=== PATIENT | male | born 1970 | race Caucasian/White ===

== ENCOUNTER 2025-02-05 08:25 | Day surgery (SDC) | payer BC ==
[~2025-02-05 08:25] MED LIST: ALPRAZolam 0.25 MG TAB PO PRN; ALPRAZolam 0.5 MG TAB PO PRN; NITROGLYCERIN SL TABS 0.4 MG TAB SUBLINGUAL PRN
[2025-02-05 08:43] VITALS: TEMP 98
[2025-02-05] MEDS: ASPIRIN 325 MG TAB PO ONE (08:48)
[2025-02-05] MEDS: SODIUM CHLORIDE 0.9% 1,000 ML in EMPTY BAG 1 BAG IV SCH (08:48)
[2025-02-05] MEDS: IV FLUID CONTINUATION 1,000 ML IV ONE (08:49)
[2025-02-05 09:06] LABS: Basophils # (A) 0.03 10*3/uL (0.00-0.10); Basophils % (A) 0.8 %; Eosinophils # (A) 0.16 10*3/uL (0.04-0.35); Eosinophils % (A) 4.1 %; HCT 42.1 % (39.6-50.0); HGB 14.6 g/dL (13.0-17.0); Lymphocytes # (A) 1.36 10*3/uL (0.90-5.00); Lymphocytes % (A) 35.1 %; MCH 30.0 pg (27.0-32.0); MCHC 34.7 g/dL (32.0-37.0); MCV 86.4 fL (80.0-97.0); Monocytes # (A) 0.32 10*3/uL (0.20-1.00); Monocytes % (A) 8.2 %; Neutrophils # (A) 2.01 10*3/uL (1.80-7.70); Neutrophils % (A) 51.8 %; Platelet Count 170 10*3/uL (140-440); RBC 4.87 10*6/uL (4.40-5.60); RDW 12.1 % (11.5-14.5); WBC 3.88 10*3/uL (4.50-10.00)
[2025-02-05 09:39] LABS: African American GFR (CKD) >90 (>60 ml/min/1.73 sqM); Anion Gap 7 mmol/L; Blood Urea Nitrogen 19 mg/dL (9-20); Calcium 9.2 mg/dL (8.4-10.2); Carbon Dioxide 26 mmol/L (22-30); Chloride 109 mmol/L (98-107); Glucose 102 mg/dL (74-99); Non-African American GFR(CKD) >90 (>60 ml/min/1.73 sqM); Potassium 4.1 mmol/L (3.5-5.1); Sodium 142 mmol/L (137-145)
[2025-02-05] MEDS: HEPARIN SODIUM,PORCINE (1 ML) 2,500 UNIT in SODIUM CHLORIDE 0.9% 250 ML IRRIGATION PRN (09:54)
[2025-02-05] MEDS: HEPARIN SODIUM,PORCINE 10,000 UNIT in SODIUM CHLORIDE 0.9% 1,000 ML IRRIGATION PRN (09:54)
[2025-02-05] MEDS: LIDOCAINE 1% INJ 10MG/ML (20 ML MDV) SQ ONE (10:19)
[2025-02-05] MEDS: MIDAZOLAM 2 MG/2 ML VIAL IVP ONE (10:19)
[2025-02-05] MEDS: VERAPAMIL SYRINGE (5 MG/10 ML) INTRAARTER ONE (10:21)
[2025-02-05] MEDS: HEPARIN SODIUM 1,000 UN/ML (10ML VL) IVP ONE (10:23)
[2025-02-05] MEDS: IOPAMIDOL-370 100ML BTL INJ ONE (10:29)
[2025-02-05] MEDS ORDERED: RX INFO: IV CONTRAST WAS GIVEN 1 EACH MISC MISCELLANE PRN (10:32)
--- NOTE | 2025-02-05 10:35 | P.PCN ---
Date of Procedure: 02/05/25 Operative Findings: CARDIAC CATHETERIZATION PERFORMING PHYSICIAN: Dl Garcia MD, RPVI PROCEDURE PERFORMED: 1. Selective right and left coronary angiogram 2. Left heart catheterization 3. Ultrasound-guided access of the right radial artery INDICATION: Symptomatic 54-year-old gentleman with abnormal stress test COMPLICATION: None APPROACH: Right radial artery LEVEL OF SEDATION: Moderate with a sedation length of 10 minutes PROCEDURE DESCRIPTION: After obtaining an informed consent, the patient was brought to cardiac cath lab radiological technologist. Local anesthesia was performed using lidocaine subcutaneously. The right radial artery was cannulated using Seldinger technique, under ultrasound guidance, the guidewire passed easily, following that we advanced a 5-Yoruba sheath dilator assembly, the wire and dilator were removed and sheath was flushed. Following that, 2 mg of verapamil along with 5000 unit heparin were given. Selective right and left coronary angiogram using a 5-Yoruba JR4 and JL 3.5 catheters. Following that we did left heart catheterization using 5-Yoruba pigtail catheter. The procedure was completed there was no complication. SELECTIVE CORONARY ANGIOGRAM: The right coronary artery: Large caliber vessel nondominant vessel with no evidence of high-grade stenosis Left main: Is normal The left circumflex: Large caliber vessel nondominant vessel with no evidence of high-grade stenosis as well The left anterior descending artery: Large caliber vessel appears to be angiographically normal. Gives rise into diagonal branches to be normal HEMODYNAMICS: The LVEDP was 12 mmHg with no significant gradient across the aortic valve CONCLUSION: 1. Normal coronary angiogram 2. Normal left-sided filling pressure POSTPROCEDURE MANAGEMENT: Medical treatment
[2025-02-05] MEDS ORDERED: SODIUM CHLORIDE 0.9% 1,000 ML IV SCH (10:45)
[2025-02-05 14:05] VITALS: BP 125/73; PULSE 70; RESP 16
== END 2025-02-05 14:15 | disposition home or self-care (01) ==
LOC: CATHCVL 08:25
PROVIDERS: ATTEND Internal Medicine Interventional Cardiology
DX: R94.39 Abnormal result of other cardiovascular function study (principal); E78.5 Hyperlipidemia, unspecified; Z88.0 Allergy status to penicillin; Z79.82 Long term (current) use of aspirin; Z79.899 Other long term (current) drug therapy
CPT/HCPCS: 93458; 80048; 85025; 99152; C1769; C1894; J2250; J1644 ×3; J2003; Q9967